=== PATIENT | female | born 1950 | race Caucasian/White ===

== ENCOUNTER 2023-07-04 19:56 | Emergency (ER) | payer MEDICARE ==
[~2023-07-04] VITALS: Ht 167.6 cm; Wt 91.0 kg
[2023-07-04 20:04] VITALS: O2SAT 96
[2023-07-04 20:40] VITALS: TEMP 97.8
[2023-07-04 21:34] LABS: HEMATOCRIT. 37.4 % (36.0-48.0); HEMOGLOBIN. 12.4 g/dL (12.0-16.0); MEAN CORPUSCULAR HEMOGLOBIN 30.4 pg (28.0-32.0); MEAN CORPUSCULAR HGB CONC 33.2 g/dL (31.0-37.0); MEAN CORPUSCULAR VOLUME 91.6 fL (81.0-99.0); MEAN PLATELET VOLUME 8.1 fl (7.4-10.4); PLATELET 200 x1000/uL (130-400); RED BLOOD CELL COUNT 4.09 mill/uL (4.2-5.4); WHITE BLOOD COUNT 11.8 x1000/uL (4.5-11.0)
[2023-07-04 21:38] LABS: DIFFERENTIAL COMMENT 1
[2023-07-04 21:41] LABS: INR 0.9; PROTHROMBIN TIME 10.4 sec (9.6-11.0)
[2023-07-04 21:49] LABS: ALANINE AMINOTRANSFERASE 10 IU/L (10-49); ALBUMIN 4.4 g/dL (3.2-4.8); ASPARTATE AMINOTRANSFERASE 17 IU/L (<34); BILIRUBIN TOTAL 0.9 mg/dL (0.1-1.0); CALCIUM 8.7 mg/dL (8.7-10.4); CARBON DIOXIDE 22 mEq/L (21-32); CHLORIDE 105 mEq/L (98-107); CREATININE 1.2 mg/dL (0.6-1.0); GLUCOSE 172 mg/dL (70-105); POTASSIUM 4.2 mEq/L (3.5-5.1); PROTEIN TOTAL 7.2 g/dL (6.0-8.3); SODIUM 135 mEq/L (136-145); UREA NITROGEN BLOOD 28 mg/dL (9-23)
[2023-07-04 21:50] LABS: TROPONIN I HIGH SENSITIVITY < 4 ng/L (3.0-34)
[2023-07-04 22:36] LABS: PLATELET ESTIMATE NORMAL
[2023-07-04] MEDS: ONDANSETRON HCL 4MG/2ML INJ IV NR (22:42)
[2023-07-04] MEDS: ACETAMINOPHEN 325MG TABLET PO NR (22:42)
[2023-07-04] MEDS: MORPHINE SULFATE 4 MG/ML CPJ (NOT FOR IM USE) IV NR (22:48)
[2023-07-04] MEDS: SODIUM CHLORIDE 0.9% 1,000 ML IV NR (23:02)
[2023-07-04 23:14] LABS: CLARITY URINE CLEAR (CLEAR); COLOR URINE YELLOW (YELLOW); GLUCOSE URINE NEGATIVE (NEGATIVE); KETONES URINE NEGATIVE (NEGATIVE); LEUKOCYTE ESTERASE URINE NEGATIVE (NEGATIVE); NITRITE URINE NEGATIVE (NEGATIVE); OCCULT BLOOD URINE TRACE (NEGATIVE); PROTEIN URINE NEGATIVE (NEGATIVE); SPECIFIC GRAVITY URINE 1.021 (1.005-1.030); UROBILINOGEN URINE 0.2 E.U./dL (0.2-1.0)
[2023-07-05] MEDS ORDERED: AMOX1TAB16 MT (00:57)
[2023-07-05] MEDS ORDERED: ONDA4TAB50 MT (00:57)
[2023-07-05] MEDS ORDERED: TRAM50TA3 MT (00:57)
[2023-07-05] MEDS: AMOXICILLIN/POTASSIUM CLAVULANATE 875/125MG TAB PO NR (01:29)
[2023-07-05 01:38] VITALS: BP 104/50; PULSE 63; RESP 21
[2023-07-05 02:54] LABS: RBC URINE 0-2 /hpf (0-2); SQUAMOUS EPITHELIAL CELL URINE FEW /lpf (RARE/1+); WBC URINE 0-2 /hpf (0-2)
[2023-07-05 02:55] LABS: BACTERIA URINE TRACE
[2023-07-05] MEDS ORDERED: IOHEXOL-300 100 ML BOTTLE ONE (09:31)
== END 2023-07-05 01:39 | disposition home or self-care (01) ==
LOC: ER 19:56
DX: K57.92 Diverticulitis of intestine, part unspecified, without perforation or abscess without bleeding (principal); E11.9 Type 2 diabetes mellitus without complications; E78.00 Pure hypercholesterolemia, unspecified; I10 Essential (primary) hypertension
CPT/HCPCS: 80053; 81003; 83690; 85025; 85610; 84484; 36415; 71045; 74177; 93005; 96361; 96374; 96375; 99285; J2405; J2270; Z7610 ×4; Q9967